=== PATIENT | female | born 1970 | race Caucasian/White ===

== ENCOUNTER 2025-01-26 11:47 | Outpatient (CLI) | payer MEDICAID, SELFPAY ==
--- NOTE | 2025-01-26 11:40 | MM_ITS ---
WS: [id number] SCREENING DIGITAL TOMOSYNTHESIS MAMMOGRAM WITH CAD HISTORY: SCREENING COMPARISON: 09/05/2020, 10/01/2018 Bilateral CC and MLO with tomosynthesis views submitted. Synthetic mammography reviewed. Computer aided detection analyzed. Breast composition: There are scattered areas of fibroglandular density. No suspicious masses, microcalcifications or architectural distortion. MM/MM scr BI tomosynthesis [id number] IMPRESSION: BI-RADS: 1 - Negative. FOLLOW UP: 1 Year Follow-up
== END 2025-01-26 11:48 | disposition home or self-care (01) ==
LOC: MOBLMAM 11:48
PROVIDERS: PCP Nurse Practitioner Family; Visit Provider Nurse Practitioner Family
DX: Z12.31 Encounter for screening mammogram for malignant neoplasm of breast (principal); R92.323 Mammographic fibroglandular density, bilateral breasts
CPT/HCPCS: 77063; 77067

== ENCOUNTER 2025-02-16 08:24 | Day surgery (SDC) | payer MEDICAID, SELFPAY ==
[2025-02-16 08:42] VITALS: BP 102/70; PULSE 109; RESP 18; TEMP 36.1; O2SAT 96; BMI 30.4
[2025-02-16] MEDS: sodium chloride 0.9% 1,000 ML 30 ML IV (08:47)
--- NOTE | 2025-02-16 09:02 | ANES.PREANE2 ---
Pre-Anesthetic Assessment Height/Weight: Height 1.6 m Weight 78.018 kg Temp Pulse Resp BP Pulse Ox O2 Del Method 97 F L 109 H 18 102/70 96 Room Air 02/16/25 08:42 02/16/25 08:42 02/16/25 08:42 02/16/25 08:42 02/16/25 08:42 02/16/25 08:42 Preop Diagnosis: HB, screening Operation Date: 02/16/25 09:30 Proposed Procedures p EGD [id number] G0105 R12 Z12.11(Not Applicable) - David Peralta MD s Colonoscopy(Not Applicable) - David Peralta MD Was Beta Roddy taken within 24 hours: N/A Was Clonidine taken within 24 hours: N/A Last intake: Intake Last Liquid Date 02/15/25 Last Liquid Time 20:00 Last Solid Date 02/14/25 Last Solid Time 20:00 Social No alcohol and No tobacco Prior IV drug user. Hx Hep C Exam alert, oriented x 3, clear to auscultation bilaterally and regular rate & rhythm Airway Submandibular: within normal limits Cervical ROM: within normal limits Mallampati: Class II Dentition: chipped Comments: Comments: Very poor dentition History/ROS No significant history except as noted and No significant complaints Pulmonary None reported Flu 2 weeks ago CV/HEM Hypertension None reported Hepatic Hepatitis GI Gastroesophageal Reflux Disease Metabolic Thyroid [place] [facility] [place] None reported Neuropsych Psych Hx Anesthetic Plan ASA status: 3 Anesthesia: Anesthesia Evaluation and MAC Risk of > 500 ml blood loss (7ml/kg in children): No Medications/Allergies Home Medications ?Medication ?Instructions ?Recorded ?Confirmed ?Last Taken ?Type albuterol sulfate 2 mg/5 mL oral 4 mg PO QID PRN Shortness Of Breath 09/22/24 02/15/25 02/10/25 History syrup fluticasone propionate 50 2 spray intranasal DAILY PRN 09/22/24 02/15/25 02/15/25 20:00 History mcg/actuation nasal allergies spray,suspension (Allergy Relief (fluticasone)) levothyroxine 100 mcg capsule 100 mcg PO DAILY 09/22/24 02/15/25 02/15/25 20:00 History lisinopril 10 mg tablet 10 mg PO DAILY 09/22/24 02/15/25 02/15/25 20:00 History meloxicam 15 mg tablet 15 mg PO DAILY 09/22/24 02/15/25 02/15/25 20:00 History pantoprazole 40 mg tablet,delayed 40 mg PO DAILY 09/22/24 02/15/25 02/15/25 20:00 History release fluoxetine 20 mg capsule (Prozac) 20 mg PO DAILY #30 caps 02/15/25 02/15/25 02/15/25 20:00 Rx gabapentin 400 mg capsule 400 mg PO TID #90 caps 02/15/25 02/15/25 02/15/25 20:00 Rx guanfacine 1 mg tablet 3 mg (3 x 1 mg) PO .HS #90 tabs 02/15/25 02/15/25 02/15/25 20:00 Rx hydroxyzine HCl 50 mg tablet 50 mg PO QID PRN anxiety/insomnia 02/15/25 02/15/25 02/15/25 20:00 Rx #120 tabs oxcarbazepine 600 mg tablet 600 mg PO TID #90 tabs 02/15/25 02/15/25 02/15/25 20:00 Rx quetiapine 400 mg tablet (Seroquel) 800 mg (2 x 400 mg) PO .HS #60 tabs 02/15/25 02/15/25 02/15/25 20:00 Rx trazodone 150 mg tablet 150 mg PO .HS PRN insomnia #30 tabs 02/15/25 02/15/25 02/15/25 20:00 Rx Allergies Allergy/AdvReac Type Severity Reaction Status Date / Time lamotrigine (From Lamictal) Allergy Severe Anaphylaxis Verified 02/16/25 08:35 . Cogentin AdvReac Severe Abnormal Uncoded 02/16/25 08:35 movements & joints lock up Current Medications Generic Name Dose Route Start Last Admin Trade Name Freq PRN Reason Stop Dose Admin Sodium Chloride 1,000 mls @ 30 mls/hr 02/16/25 06:45 02/16/25 08:47 Sodium Chloride 0.9% IV 02/17/25 06:44 30 mls/hr .Q24H FARHAT Administration PFSH Anesthesia Medical History Psychiatric care Social History Smoking and tobacco/nicotine status: never used tobacco/nicotine Data Anesthesia Cardiac Studies: No Data to Display
--- NOTE | 2025-02-16 09:04 | W.PM.OPSUD ---
Surgery/Procedure H&P Update DATE OF PROCEDURE: February 16, 2025 DATE H&P PERFORMED: 01/18/25 H&P UPDATE INFORMATION: I have reviewed H&P completed within last 30 days, I have examined patient prior to procedure and No changes to prior documentation PLANNED PROCEDURE: Operation Date: 02/16/25 09:30 Proposed Procedures p EGD [id number] G0105 R12 Z12.11(Not Applicable) - David Peralta MD s Colonoscopy(Not Applicable) - David Peralta MD
[2025-02-16 09:34] VITALS: BP 110/70; RESP 18; TEMP 36.3; O2SAT 96
[2025-02-16 09:42] VITALS: BP 114/77; PULSE 81; RESP 18; TEMP 36.2; O2SAT 92
--- NOTE | 2025-02-16 12:34 | ANE.PACU2 ---
Inpatient post-anesthesia follow up: Vital signs: Temperature 97.1 F Pulse Rate 81 Respiratory Rate 18 Blood Pressure 114/77 Pulse Oximetry 92 Oxygen Delivery Me thod Room Air Oxygen Flow Rate Fraction of Inspir ed Oxygen Hydration adequate: Yes Nausea and vomiting: No Pain level: 1 Mental status: Baseline
== END 2025-02-16 09:58 | disposition home or self-care (01) ==
PROVIDERS: PCP Nurse Practitioner Family; Visit Provider Student in an Organized Health Care Education/Training Program
PROC: 0DJ08ZZ Inspection of Upper Intestinal Tract, Via Natural or Artificial Opening Endoscopic (ICD-10-PCS; principal; 2025-02-16 09:30)
PROC: 0DJD8ZZ Inspection of Lower Intestinal Tract, Via Natural or Artificial Opening Endoscopic (ICD-10-PCS; CPT 45378; 2025-02-16 09:30)
DX: Z12.11 Encounter for screening for malignant neoplasm of colon (principal); Z80.0 Family history of malignant neoplasm of digestive organs; I10 Essential (primary) hypertension; K21.9 Gastro-esophageal reflux disease without esophagitis; K29.50 Unspecified chronic gastritis without bleeding; E07.9 Disorder of thyroid, unspecified; Z79.899 Other long term (current) drug therapy; Z79.890 Hormone replacement therapy
CPT/HCPCS: 43239; 45378; 88305; J2704; J7030